=== PATIENT | male | born 1950 | race Caucasian/White ===

== ENCOUNTER 2016-12-05 15:09 | Inpatient (IN) | payer MEDICARE, OTHER ==
[~2016-12-05] VITALS: Ht 180.3 cm; Wt 69.6 kg
[2016-12-05] MEDS ORDERED: SODIUM CHLORIDE FLUSH 10ML SYR IVF ONE (17:00)
[2016-12-05 17:17] LABS: ASPARTATE AMINO TRANSFERASE 18 U/L (15-37); BLOOD UREA NITROGEN 16 mg/dL (7-18)
[2016-12-05] MEDS ORDERED: GADOBUTROL 7.5 MMOL/7.5 ML PFS ONE (19:52)
[2016-12-05 22:01] VITALS: BP 125/73
[2016-12-05] MEDS ORDERED: ACETAMINOPHEN 325 MG TABLET PO PRN (22:30)
[2016-12-06 02:24] VITALS: BP 125/73
[2016-12-06 04:45] LABS: ASPARTATE AMINO TRANSFERASE 16 U/L (15-37); BLOOD UREA NITROGEN 15 mg/dL (7-18)
[2016-12-06 08:14] VITALS: BP 147/79
[2016-12-06] MEDS ORDERED: GOLYTELY 4,000ML ORAL.SOL PO ONE (14:00)
[2016-12-06 15:37] VITALS: BP 125/73
[2016-12-06 19:30] VITALS: BP 125/77
[2016-12-07 01:00] VITALS: BP 114/73
[2016-12-07 07:05] VITALS: BP 131/77
[2016-12-07] MEDS ORDERED: FENTANYL PF 100 MCG/2ML ONE ×2 (07:57→11:23)
[2016-12-07] MEDS ORDERED: MIDAZOLAM 1 MG/ML, 5ML ONE ×2 (07:57→11:23)
[2016-12-07] MEDS ORDERED: FLUMAZENIL 0.1 MG/1 ML, 5ML ONE (11:24)
[2016-12-07] MEDS ORDERED: NALOXONE 1 MG/ML, 2ML ONE (11:24)
[2016-12-07] MEDS ORDERED: LIDOCAINE 2%, 20ML ONE (11:37)
== END 2016-12-07 14:30 | disposition home or self-care (01) | DRG 436 ==
LOC: ED 16:01 → EDIP 21:06 → 3NW 21:56
PROVIDERS: ADMIT Internal Medicine; ATTEND Internal Medicine
PROC: BF45ZZZ Ultrasonography of Liver (ICD-10-PCS; 2016-12-07)
PROC: 0DJD8ZZ Inspection of Lower Intestinal Tract, Via Natural or Artificial Opening Endoscopic (ICD-10-PCS; 2016-12-07)
PROC: 0FB13ZX Excision of Right Lobe Liver, Percutaneous Approach, Diagnostic (ICD-10-PCS; principal; 2016-12-07 08:00)
DX: C78.7 Secondary malignant neoplasm of liver and intrahepatic bile duct (principal); H46.9 Unspecified optic neuritis; H53.122 Transient visual loss, left eye; C78.00 Secondary malignant neoplasm of unspecified lung; C79.31 Secondary malignant neoplasm of brain; C79.49 Secondary malignant neoplasm of other parts of nervous system; H05.89 Other disorders of orbit; Z80.42 Family history of malignant neoplasm of prostate; Z85.828 Personal history of other malignant neoplasm of skin; H47.093 Other disorders of optic nerve, not elsewhere classified, bilateral; C69.62 Malignant neoplasm of left orbit; C69.61 Malignant neoplasm of right orbit
CPT/HCPCS: 36415; 47000; 70543; 70553; 71260; 74177; 76942; 80053; 82105; 82378; 83615; 84702; 85025; 85549; 85610; 85651; 85730; 86141; 86301; 86592; 88307; 88333; 93306; 96372; 96374; 99152; 99153; 99156; 99157; A9585; J2250; J3010; J3490; J2310

== ENCOUNTER → 2017-04-07 | Outpatient (CLI) | payer OTHER ==
[~2017-04-07] MED LIST: GADOBUTROL 7.5 MMOL/7.5 ML PFS ONE; OMNIPAQUE 350 MG/ML, 100ML BOTTLE ONE
== END | disposition home or self-care (01) ==
LOC: RAD 12:49
PROVIDERS: ATTEND Internal Medicine Hematology & Oncology
DX: Z51.11 Encounter for antineoplastic chemotherapy (principal); Z51.89 Encounter for other specified aftercare; C78.7 Secondary malignant neoplasm of liver and intrahepatic bile duct; C79.31 Secondary malignant neoplasm of brain; C79.49 Secondary malignant neoplasm of other parts of nervous system; C78.00 Secondary malignant neoplasm of unspecified lung; C7A.1 Malignant poorly differentiated neuroendocrine tumors; C7A.8 Other malignant neuroendocrine tumors; C78.1 Secondary malignant neoplasm of mediastinum; D70.1 Agranulocytosis secondary to cancer chemotherapy
CPT/HCPCS: 70553; 71260; 74177; A9585; Q9967

== ENCOUNTER → 2017-08-06 | Outpatient (CLI) | payer OTHER ==
[~2017-08-06] MED LIST changes: -OMNIPAQUE 350 MG/ML, 100ML BOTTLE ONE
== END | disposition home or self-care (01) ==
LOC: CFH 09:51
PROVIDERS: ATTEND Radiology Radiation Oncology
DX: I67.82 Cerebral ischemia (principal); C79.31 Secondary malignant neoplasm of brain; D3A.8 Other benign neuroendocrine tumors
CPT/HCPCS: 70543; 70553; A9585

== ENCOUNTER → 2017-08-13 | Outpatient (CLI) | payer OTHER ==
[~2017-08-13] MED LIST changes: -GADOBUTROL 7.5 MMOL/7.5 ML PFS ONE; +OMNIPAQUE 350 MG/ML, 100ML BOTTLE ONE
== END | disposition home or self-care (01) ==
LOC: CFH 11:54
PROVIDERS: ATTEND Internal Medicine Hematology & Oncology
DX: K76.89 Other specified diseases of liver (principal); R91.8 Other nonspecific abnormal finding of lung field; C7A.1 Malignant poorly differentiated neuroendocrine tumors
CPT/HCPCS: 71260; 74177; Q9967

== ENCOUNTER → 2017-11-09 | Outpatient (CLI) | payer OTHER ==
[~2017-11-09] MED LIST changes: +GADOBUTROL 7.5 MMOL/7.5 ML VIAL ONE
== END | disposition home or self-care (01) ==
LOC: CFH 11:06
PROVIDERS: ATTEND Internal Medicine Hematology & Oncology
DX: D3A.8 Other benign neuroendocrine tumors (principal); K76.9 Liver disease, unspecified; R91.8 Other nonspecific abnormal finding of lung field; E04.2 Nontoxic multinodular goiter
CPT/HCPCS: 70543; 70553; 71260; 74177; A9585; Q9967

== ENCOUNTER → 2018-02-08 | Outpatient (CLI) | payer MEDICARE, OTHER ==
[~2018-02-08] MED LIST changes: +GADOBUTROL 7.5 MMOL/7.5 ML PFS ONE; -GADOBUTROL 7.5 MMOL/7.5 ML VIAL ONE
== END | disposition home or self-care (01) ==
LOC: CFH 09:17
PROVIDERS: ATTEND Radiology Radiation Oncology
DX: R16.0 Hepatomegaly, not elsewhere classified (principal); N28.1 Cyst of kidney, acquired; K76.89 Other specified diseases of liver; R91.8 Other nonspecific abnormal finding of lung field; E04.2 Nontoxic multinodular goiter; K62.89 Other specified diseases of anus and rectum; C79.31 Secondary malignant neoplasm of brain; C7A.8 Other malignant neuroendocrine tumors
CPT/HCPCS: 70543; 70553; 71260; 74177; A9585; Q9967

== ENCOUNTER → 2018-02-16 | Outpatient (CLI) | payer OTHER | END | disposition home or self-care (01) | LOC: ROC 12:50 | PROVIDERS: ATTEND Radiology Radiation Oncology | DX: C7A.1 Malignant poorly differentiated neuroendocrine tumors (principal); C79.31 Secondary malignant neoplasm of brain; C78.7 Secondary malignant neoplasm of liver and intrahepatic bile duct; C78.00 Secondary malignant neoplasm of unspecified lung | CPT/HCPCS: 99213; G0463 ==

== ENCOUNTER 2018-06-30 13:54 | Outpatient (CLI) | payer OTHER ==
[~2018-06-30 13:54] MED LIST changes: +FISH OIL PO; -GADOBUTROL 7.5 MMOL/7.5 ML PFS ONE; -OMNIPAQUE 350 MG/ML, 100ML BOTTLE ONE
[2018-06-30] MEDS ORDERED: OMNIPAQUE 350 MG/ML, 100ML BOTTLE ONE (16:02)
== END 2018-06-30 23:59 | disposition home or self-care (01) ==
LOC: CFH 13:54
PROVIDERS: ATTEND Internal Medicine Hematology & Oncology
DX: R91.8 Other nonspecific abnormal finding of lung field (principal); R59.0 Localized enlarged lymph nodes
CPT/HCPCS: 71260; 74177; Q9967

== ENCOUNTER → 2018-07-06 | Outpatient (CLI) | payer OTHER ==
[~2018-07-06] MED LIST changes: +GADOBUTROL 7.5 MMOL/7.5 ML PFS ONE
== END | disposition home or self-care (01) ==
LOC: CFH 09:05
PROVIDERS: ATTEND Internal Medicine Hematology & Oncology
DX: C7A.1 Malignant poorly differentiated neuroendocrine tumors (principal)
CPT/HCPCS: 70543; 70553; A9585

== ENCOUNTER 2018-12-19 12:52 | Outpatient (CLI) | payer OTHER ==
[~2018-12-19 12:52] MED LIST changes: -GADOBUTROL 7.5 MMOL/7.5 ML PFS ONE
[2018-12-19] MEDS ORDERED: OMNIPAQUE 350 MG/ML, 100ML BOTTLE ONE (14:56)
== END 2018-12-19 23:59 | disposition home or self-care (01) ==
LOC: CFH 12:52
PROVIDERS: ATTEND Pathology Hematology
DX: C78.7 Secondary malignant neoplasm of liver and intrahepatic bile duct (principal); C78.02 Secondary malignant neoplasm of left lung; C78.1 Secondary malignant neoplasm of mediastinum; C7A.1 Malignant poorly differentiated neuroendocrine tumors; N28.89 Other specified disorders of kidney and ureter; G31.9 Degenerative disease of nervous system, unspecified; G93.89 Other specified disorders of brain; R90.82 White matter disease, unspecified
CPT/HCPCS: 70553; 71260; 74177; Q9967

== ENCOUNTER → 2019-08-30 | Outpatient (CLI) | payer BC, OTHER ==
[~2019-08-30] MED LIST changes: +GADOTERATE 7.5 MMOL/15 ML SYR ONE; +OMNIPAQUE 350 MG/ML, 100ML BOTTLE ONE
== END | disposition home or self-care (01) ==
LOC: CFH 11:24
PROVIDERS: ATTEND Pathology Hematology
DX: C7A.1 Malignant poorly differentiated neuroendocrine tumors (principal); C78.7 Secondary malignant neoplasm of liver and intrahepatic bile duct; K44.9 Diaphragmatic hernia without obstruction or gangrene; E04.2 Nontoxic multinodular goiter; R16.0 Hepatomegaly, not elsewhere classified; N13.30 Unspecified hydronephrosis; N13.4 Hydroureter; N26.1 Atrophy of kidney (terminal); N13.5 Crossing vessel and stricture of ureter without hydronephrosis; G93.9 Disorder of brain, unspecified; G31.9 Degenerative disease of nervous system, unspecified; I67.82 Cerebral ischemia; G93.89 Other specified disorders of brain
CPT/HCPCS: 70553; 71260; 74177; A9575; Q9967

== ENCOUNTER 2019-09-19 08:59 | Day surgery (SDC) | payer BC ==
[~2019-09-19] VITALS: Ht 177.8 cm; Wt 62.3 kg
[~2019-09-19 08:59] MED LIST changes: -GADOTERATE 7.5 MMOL/15 ML SYR ONE; -OMNIPAQUE 350 MG/ML, 100ML BOTTLE ONE
[2019-09-19] MEDS ORDERED: CEFAZOLIN PMX 1GM/50ML 50 ML IV STA (09:18)
[2019-09-19 09:24] VITALS: BP 122/76
[2019-09-19] MEDS ORDERED: CEFAZOLIN PMX 1GM/50ML 50 ML ONE (09:31)
[2019-09-19] MEDS ORDERED: SODIUM CHLORIDE 0.9% 1,000 ML IV ONE (09:41)
[2019-09-19] MEDS ORDERED: MIDAZOLAM 1 MG/ML, 5ML ONE (11:04)
[2019-09-19] MEDS ORDERED: FLUMAZENIL 0.1 MG/1 ML, 5ML ONE (11:04)
[2019-09-19] MEDS ORDERED: NALOXONE 1 MG/ML, 2ML ONE (11:04)
[2019-09-19] MEDS ORDERED: FENTANYL PF 100 MCG/2ML ONE (11:04)
[2019-09-19] MEDS ORDERED: LIDOCAINE 1%, 20ML ONE (11:09)
== END 2019-09-19 13:40 | disposition home or self-care (01) ==
LOC: OUT 08:59
PROVIDERS: ATTEND Student in an Organized Health Care Education/Training Program
DX: C7A.1 Malignant poorly differentiated neuroendocrine tumors (principal); N13.1 Hydronephrosis with ureteral stricture, not elsewhere classified; C78.7 Secondary malignant neoplasm of liver and intrahepatic bile duct; Z79.891 Long term (current) use of opiate analgesic; Z79.899 Other long term (current) drug therapy
CPT/HCPCS: 50432; 76937; 99156; 99157; C1729; C1769; C1894; J0690; J2250; J3010; J7030; J2310

== ENCOUNTER → 2019-10-26 | Outpatient (CLI) | payer BC ==
[~2019-10-26] MED LIST changes: +OMNIPAQUE 350 MG/ML, 100ML BOTTLE ONE
== END | disposition home or self-care (01) ==
LOC: CFH 11:20
PROVIDERS: ATTEND Pathology Hematology
DX: C34.00 Malignant neoplasm of unspecified main bronchus (principal); C7A.1 Malignant poorly differentiated neuroendocrine tumors; R59.0 Localized enlarged lymph nodes; N28.1 Cyst of kidney, acquired; N13.30 Unspecified hydronephrosis
CPT/HCPCS: 71260; 74177; Q9967

== ENCOUNTER → 2019-12-06 | Outpatient (CLI) | payer BC ==
[~2019-12-06] MED LIST changes: +GADOTERATE 7.5 MMOL/15 ML SYR ONE; -OMNIPAQUE 350 MG/ML, 100ML BOTTLE ONE
== END | disposition home or self-care (01) ==
LOC: CFH 08:33
PROVIDERS: ATTEND Pathology Hematology
DX: C7A.1 Malignant poorly differentiated neuroendocrine tumors (principal); C34.00 Malignant neoplasm of unspecified main bronchus; I61.4 Nontraumatic intracerebral hemorrhage in cerebellum; G93.89 Other specified disorders of brain; G31.89 Other specified degenerative diseases of nervous system; R91.8 Other nonspecific abnormal finding of lung field; K76.9 Liver disease, unspecified; R16.0 Hepatomegaly, not elsewhere classified; N28.89 Other specified disorders of kidney and ureter
CPT/HCPCS: 70553; 78815; A9552; A9575

== ENCOUNTER → 2020-03-04 | Outpatient (CLI) | payer BC, MEDICARE ==
[~2020-03-04] MED LIST changes: -GADOTERATE 7.5 MMOL/15 ML SYR ONE; +OMNIPAQUE 350 MG/ML, 100ML BOTTLE ONE
== END | disposition home or self-care (01) ==
LOC: RAD 12:19
PROVIDERS: ATTEND Pathology Hematology
DX: C34.00 Malignant neoplasm of unspecified main bronchus (principal); C7A.1 Malignant poorly differentiated neuroendocrine tumors; G31.9 Degenerative disease of nervous system, unspecified; G93.89 Other specified disorders of brain; K76.89 Other specified diseases of liver
CPT/HCPCS: 70553; 71260; 74177; Q9967

== ENCOUNTER → 2020-05-22 | Outpatient (CLI) | payer MEDICARE, BC ==
[~2020-05-22] MED LIST changes: +GADOTERATE 7.5 MMOL/15 ML VIAL ONE
== END | disposition home or self-care (01) ==
LOC: RAD 10:47
PROVIDERS: ATTEND Pathology Hematology
DX: C34.00 Malignant neoplasm of unspecified main bronchus (principal); C7A.1 Malignant poorly differentiated neuroendocrine tumors; C78.7 Secondary malignant neoplasm of liver and intrahepatic bile duct; R91.8 Other nonspecific abnormal finding of lung field; J92.9 Pleural plaque without asbestos; K76.89 Other specified diseases of liver; N26.1 Atrophy of kidney (terminal); N13.30 Unspecified hydronephrosis; N32.89 Other specified disorders of bladder; G93.89 Other specified disorders of brain
CPT/HCPCS: 70553; 71260; 74177; A9575; Q9967